=== PATIENT | male | born 1960 | race Caucasian/White ===

== ENCOUNTER 2017-09-02 20:12 | Observation (INO) | payer BC ==
[~2017-09-02] VITALS: Ht 177.8 cm; Wt 97.0 kg
[~2017-09-02 20:12] MED LIST: IBUP200T52 PO; nyquil PO
[2017-09-02] MEDS ORDERED: MULTI-VITAMIN INFUSION INJ 10 ML, THIAMINE HCL INJ 100 MG, FoLIC ACID INJ 1 MG in SODIU... IV ONE (20:30)
[2017-09-02 20:55] LABS: BASO % 0.4 %; BASO ABS # 0.03 K/uL (0-0.2); EOS % 3.7 %; EOS ABS # 0.29 K/uL (0-0.5); HEMATOCRIT 45.2 % (42-52); HEMOGLOBIN 16.3 g/dL (14.0-18.0); IG# 0.02 K/uL (0.00-0.02); LYMPH % 41.6 %; LYMPH ABS # 3.23 K/uL (1.2-3.4); MEAN CELL VOLUME 91.5 fL (80-100); MEAN CORPUSCULAR HGB CONC 36.1 g/dl (32-36); MEAN PLATELET VOLUME 10.1 fL (7.4-10.4); MONO % 10.1 %; MONO ABS # 0.78 K/uL (0.11-0.59); NEUT % 43.9 %; NEUT ABS # 3.41 K/uL (1.4-6.5); PLATELET COUNT 200 K/uL (130-400); RED CELL DISTRIBUTION WIDTH CV 12.9 % (11.5-14.5); RED CELL DISTRIBUTION WIDTH SD 43.2 fL (36.4-46.3); WHITE BLOOD COUNT 7.76 K/uL (4.8-10.8)
--- NOTE | 2017-09-02 21:06 | DIAGNOSTIC IMAGING REPORT ---
CHEST ONE VIEW PORTABLE CLINICAL HISTORY: Stroke COMPARISON STUDY: 05/05/2013 FINDINGS: The cardiac and mediastinal contours are normal. There is no evidence of focal pulmonary consolidation. There is no evidence of failure. No pleural effusions are visualized.[ IMPRESSION: No active disease in the chest. Electronically signed by: Mitesh Cabrera M.D. 09/02/2017 9:04 PM Dictated Date/Time: 09/02/2017 9:04 PM
[2017-09-02 21:13] LABS: BLOOD UREA NITROGEN 9 mg/dl (7-18); CALCIUM 8.7 mg/dl (8.5-10.1); CARBON DIOXIDE 24 mmol/L (21-32); CREATININE 1.01 mg/dl (0.60-1.40); GLUCOSE 96 mg/dl (70-99); POTASSIUM 3.6 mmol/L (3.5-5.1); SODIUM 133 mmol/L (136-145)
[2017-09-02 21:17] LABS: CKMB < 0.5 ng/ml (0.5-3.6)
--- NOTE | 2017-09-02 21:43 | DIAGNOSTIC IMAGING REPORT ---
CT HEAD WITHOUT CONTRAST (CT) CLINICAL HISTORY: Stroke RIGHT LEG AND ARM WEAKNESS COMPARISON STUDY: 05/02/2013 TECHNIQUE: Axial CT of the brain is performed from the vertex to the skull base. IV contrast was not administered for this examination. A dose lowering technique was utilized adhering to the principles of ALARA. CT DOSE: 614.27 mGy.cm FINDINGS: No intra or extra-axial mass lesions are visualized. There is no CT evidence of acute cortical infarction. There is no evidence of midline shift. There is no acute hemorrhage. No calvarial fractures are visualized. There are patchy white matter hypodensities likely on a small vessel basis. There is no evidence of pathologic ventricular dilatation. There is a stable hypodensity within the left centrum semiovale and left periventricular deep white matter. There is no evidence of acute sinusitis There is stable basilar ectasia. IMPRESSION: No acute intracranial findings Electronically signed by: Mitesh Cabrera M.D. 09/02/2017 9:41 PM Dictated Date/Time: 09/02/2017 9:39 PM
[2017-09-02] MEDS ORDERED: POLYETHYLENE (MIRALAX) 17 GM PACK PO PRN (22:45)
[2017-09-02] MEDS ORDERED: ACETAMINOPHEN 325 MG TAB PO PRN (22:45)
[2017-09-02] MEDS ORDERED: ONDANSETRON INJ 2 MG/ML 2 ML VIAL IV PRN (22:45)
[2017-09-02] MEDS ORDERED: PHARMACIST DISCHARGE MED REC CONSULT PRN (22:45)
[2017-09-02 23:09] LABS: AST/SGOT 66 U/L (15-37); TOTAL PROTEIN 8.1 gm/dl (6.4-8.2)
[2017-09-02 23:14] LABS: ALKALINE PHOSPHATASE 79 U/L (45-117); ALT/SGPT 120 U/L (12-78)
--- NOTE | 2017-09-02 23:26 | DIAGNOSTIC IMAGING REPORT ---
ULTRASOUND OF THE CAROTID ARTERIES CLINICAL HISTORY: Strokelike symptoms. COMPARISON STUDY: No priors. TECHNIQUE: Real-time, grayscale, and color Doppler sonography of the carotid arteries is performed. Images are reviewed in the transverse and longitudinal planes. FINDINGS: Blood pressure in the right arm measures 163/90 and blood pressure in the left arm measures 181/91. The carotid arteries are patent bilaterally and demonstrate antegrade flow. There is no significant atherosclerotic plaque identified. Normal doppler arterial waveforms are seen throughout. Velocity measurements are listed below. Common carotid peak systolic velocity (cm/sec): RIGHT: 117 LEFT: 88 ICA proximal peak systolic velocity (cm/sec): RIGHT: 74 LEFT: 68 ICA mid peak systolic velocity (cm/sec): RIGHT: 74 LEFT: 45 ICA distal peak systolic velocity (cm/sec): RIGHT: 67 LEFT: 64 ICA/CC peak systolic ratio: RIGHT: 0.6 LEFT: 0.8 Antegrade flow was shown in the vertebral arteries. The external carotid arteries are patent. IMPRESSION: 1. There is no sonographic evidence of hemodynamically significant stenosis in the right or left carotid arterial system. 2. Antegrade flow is shown in the vertebral arteries. Electronically signed by: Matthew Mc M.D. 09/02/2017 11:25 PM Dictated Date/Time: 09/02/2017 11:24 PM
[2017-09-02] MEDS ORDERED: IV FLUIDS COMPLETED PRN (23:30)
[2017-09-03] VITALS (9 sets, daily range): BP systolic 165–178; BP diastolic 87–97; PULSE 66–97; TEMP 36.6–36.7; O2SAT 95–96; Ht 177.8 cm; Wt 97.0 kg
--- NOTE | 2017-09-03 00:27 | History and Physical ---
History & Physical Date & Time of Service: Sep 03, 2017 at 00:15 Chief Complaint: Right Sided Weakness Primary Care Physician: No Doctor, Assigned History of Present Illness Source: patient Patient is a 56 yo male who presents to the hospital for complaints of feeling weakness and difficulty controlled his RUE and RLE. He feels it is affecting his gait and feels as though his RLE is dragging behind and difficult to move. He reports the symptoms first began 2 days ago and were not getting worse until earlier today when he noticed his right side extremities felt weaker and his friends noted that his gait appeared off. The patient also admits to drinking 10 -12 beers earlier today and states that he does binge drink beer on the weekends only. Patient denies any recent falls or trauma. No recent illness or sick contacts. Past Medical/Surgical History Medical Problems: (1) No Known Active Medical Problems SurgHx: Right ankle surgery Family History Father: CVA, diabetes Social History Smoking Status: Never Smoker Smokeless Tobacco Use: Yes (10 cans per week) Alcohol Use: heavy (on the weekends only) Drug Use: none Marital Status: Housing status: lives alone Occupational Status: employed Immunizations History of Influenza Vaccine: Yes Influenza Vaccine Date: May 06, 2013 History of Tetanus Vaccine?: Yes History of Pneumococcal: No History of Hepatitis B Vaccine: No Multi-Drug Resistant Organisms History of MDRO: No Allergies Coded Allergies: No Known Allergies (Unverified , 05/02/13) Home Medications No Active Prescriptions or Reported Meds Review of Systems Constitutional: No fever, No chills, No sweats, No weight loss Eyes: No worsening of vision, No eye pain, No diplopia ENT: No hearing loss, No nasal symptoms, No sore throat, No trouble swallowing Respiratory: No cough, No sputum, No wheezing, No shortness of breath Cardiovascular: No chest pain, No edema, No palpitations Abdomen: No pain, No nausea, No vomiting, No diarrhea Musculoskeletal: + joint pain, No swelling, No calf pain Genitourinary - Male: No hematuria, No dysuria, No urinary frequency, No urinary urgency Neurologic: + weakness, No numbness/tingling, No vertigo Psychiatric: No depression symptoms, No anhedonism, No anxiety, No insomnia Endocrine: No fatigue, No excessive thirst, No excessive urination Hematologic / Lymphatic: No abnormal bleeding/bruising, No clotting problems, No swollen lymph nodes Integumentary: No rash, No itch, No new/changing skin lesions Physical Exam Vital Signs Date Time Temp Pulse Resp B/P (MAP) Pulse Ox O2 Delivery O2 Flow Rate FiO2 09/02/17 22:17 103 165/90 94 Room Air 09/02/17 20:54 92 09/02/17 20:36 95 Room Air 09/02/17 20:17 36.6 101 18 173/96 96 Room Air General Appearance: WD/WN, no apparent distress Head: normocephalic, atraumatic Eyes: PERRL, EOMI, sclerae normal (conjunctivae clear) ENT: hearing grossly normal Neck: supple, no JVD, no carotid bruits, trachea midline Respiratory/Chest: chest non-tender, lungs clear, normal breath sounds, no respiratory distress, no accessory muscle use Cardiovascular: regular rate, rhythm, no edema, no gallop, no JVD, no murmur Abdomen/GI: normal bowel sounds, non tender, soft, no organomegaly Back: normal inspection, no CVA tenderness Extremities/Musculoskelatal: normal inspection, no calf tenderness, normal capillary refill, no pedal edema Neurologic/Psych: progress man II-XII nml as tested, no motor/sensory deficits, alert, normal mood/affect, oriented x 3 Skin: normal color, warm/dry, no rash Diagnostics Laboratory Results Results Past 24 Hours Test 09/02/17 20:34 09/02/17 20:43 09/03/17 00:00 Range/Units Bedside Prothrombin Time INR 1.0 0.9-1.1 Bedside Glucose 94 70-99 mg/dl White Blood Count 7.76 4.8-10.8 K/uL Red Blood Count 4.94 4.7-6.1 M/uL Hemoglobin 16.3 14.0-18.0 g/dL Hematocrit 45.2 42-52 % Mean Corpuscular Volume 91.5 80-100 fL Mean Corpuscular Hemoglobin 33.0 25-34 pg Mean Corpuscular Hemoglobin Concent 36.1 32-36 g/dl Platelet Count 200 130-400 K/uL Mean Platelet Volume 10.1 7.4-10.4 fL Neutrophils (%) (Auto) 43.9 % Lymphocytes (%) (Auto) 41.6 % Monocytes (%) (Auto) 10.1 % Eosinophils (%) (Auto) 3.7 % Basophils (%) (Auto) 0.4 % Neutrophils # (Auto) 3.41 1.4-6.5 K/uL Lymphocytes # (Auto) 3.23 1.2-3.4 K/uL Monocytes # (Auto) 0.78 0.11-0.59 K/uL Eosinophils # (Auto) 0.29 0-0.5 K/uL Basophils # (Auto) 0.03 0-0.2 K/uL RDW Standard Deviation 43.2 36.4-46.3 fL RDW Coefficient of Variation 12.9 11.5-14.5 % Immature Granulocyte % (Auto) 0.3 % Immature Granulocyte # (Auto) 0.02 0.00-0.02 K/uL Prothrombin Time 10.0 9.0-12.0 SECONDS Prothromb Time International Ratio 1.0 0.9-1.1 Activated Partial Thromboplast Time 24.0 21.0-31.0 SECONDS Partial Thromboplastin Ratio 0.9 Sodium Level 133 136-145 mmol/L Potassium Level 3.6 3.5-5.1 mmol/L Chloride Level 100 98-107 mmol/L Carbon Dioxide Level 24 21-32 mmol/L Anion Gap 9.0 3-11 mmol/L Blood Urea Nitrogen 9 7-18 mg/dl Creatinine 1.01 0.60-1.40 mg/dl Est Creatinine Clear Calc Drug Dose 96.3 ml/min Estimated GFR () 95.3 Estimated GFR (Non- 82.2 BUN/Creatinine Ratio 8.8 10-20 Random Glucose 96 70-99 mg/dl Calcium Level 8.7 8.5-10.1 mg/dl Magnesium Level 2.1 1.8-2.4 mg/dl Total Bilirubin 0.7 0.2-1 mg/dl Direct Bilirubin 0.1 0-0.2 mg/dl Aspartate Amino Transf (AST/SGOT) 66 15-37 U/L Alanine Aminotransferase (ALT/SGPT) 120 12-78 U/L Alkaline Phosphatase 79 45-117 U/L Total Creatine Kinase 60 39-308 U/L Creatine Kinase MB < 0.5 0.5-3.6 ng/ml Creatine Kinase MB Ratio 0-3.0 Troponin I < 0.015 0-0.045 ng/ml Total Protein 8.1 6.4-8.2 gm/dl Albumin 4.0 3.4-5.0 gm/dl Ethyl Alcohol mg/dL 223.9 0-3 mg/dl Normal EKG Impression Assessment and Plan RIGHT SIDED WEAKNESS: -initial head CT negative -obtain lipid panel, HbA1c -TTE -MRI brain -carotid US -Neuro consult -PT/OT consult -start ASA and statin -BP is slightly elevated but will not intervene until stroke is ruled out -patient will need to establish care with a PCP for additional health maintenance as he has not been followed by a physician for many years MODERATE ALCOHOL USE: -patient reports heavy drinking on the weekends, mainly Fri and Sat -counseled on the effect of heavy alcohol use even when not done daily as in binging form TOBACCO DEPENDANCE: -chewing tobacco use, needs counseling on cessation Level of Care Telemetry Resuscitation Status FULL RESUSCITATION VTE Prophylaxis VTE Risk Assessment Done? Y/N: Yes Risk Level: Moderate Given or contraindicated: Enoxaparin (Lovenox)SQ
--- NOTE | 2017-09-03 01:43 | EMERGENCY ROOM VISIT NOTE ---
History Report prepared by Gera: Sumeet Fernandez Under the Supervision of: Dr. Sumeet Dash M.D. First contact with patient: 20:17 Chief Complaint: STROKE SYMPTOMS Stated Complaint: RIGHT LEG,ARM NOT WORKING History of Present Illness The patient is a 56 year old male who presents to the Emergency Room with complaints of stroke-like symptoms on the right-side of his body for the past 2 days. Patient states that his right arm became weak 2 days ago. He states that his right leg got weak yesterday. Patient states that he was able to walk yesterday but he felt weaker than usual. Patient denies numbness, abdominal pain , fevers, headaches, or chest pain. Patient is present with a friend. Friend denies noticing any facial droop. Patient states that he drank "10-12 beers" today. He usually drinks on the weekends only. He started drinking 7 hours ago. He states that this a normal amount of drinking for a Monday afternoon. Patient denies any medical problems. He denies currently taking any medications. He denies having a PCP. His symptoms got worse today and so he presented to the emergency department. Source of History: patient Onset: 2 days ago Position: arm (right), leg (right) Timing: worsening Associated Symptoms: No fevers, No headache, No chest pain, No abdominal pain, No numbness Review of Systems See HPI for pertinent positives & negatives. A total of 10 systems reviewed and were otherwise negative. Past Medical & Surgical Medical Problems: (1) No Known Active Medical Problems (2) Right sided weakness Family History No pertinent family history. Social History Alcohol Use: none Drug Use: none Marital Status: Housing Status: lives with family Occupation Status: employed Current/Historical Medications No Active Prescriptions or Reported Meds Allergies Coded Allergies: No Known Allergies (Unverified , 05/02/13) Physical Exam Vital Signs Date Time Temp Pulse Resp B/P (MAP) Pulse Ox O2 Delivery O2 Flow Rate FiO2 09/02/17 22:17 103 165/90 94 Room Air 09/02/17 20:54 92 09/02/17 20:36 95 Room Air 09/02/17 20:17 36.6 101 18 173/96 96 Room Air Physical Exam Constitutional: Vital signs reviewed. Eyes: Pupils are equal round reactive to light. Conjunctiva are noninjected. ENT: Pharynx is clear without erythema or exudate. Mucous membranes are moist. Neck supple without meningeal signs. Respiratory: Clear to auscultation bilaterally. Breath sounds are equal bilaterally. Cardiovascular: Regular rate and rhythm. No rubs or gallops. GI: Soft, nondistended and nontender. Bowel sounds are present. Musculoskeletal: No peripheral edema. No lower extremity tenderness. Integumentary: No cyanosis. Neurological: The patient is awake and alert. Cranial nerves II-XII are intact. Motor is 5 out of 5, except for RLE which is 4 out of 5. Sensation is intact to light touch all extremities. Normal speech. No pronator drift. Psychiatric: Normal affect. Medical Decision & Procedures ER Provider Diagnostic Interpretation: Radiology results as stated below per my review and the radiologist's interpretation: CHEST ONE VIEW PORTABLE CLINICAL HISTORY: Stroke COMPARISON STUDY: 05/05/2013 FINDINGS: The cardiac and mediastinal contours are normal. There is no evidence of focal pulmonary consolidation. There is no evidence of failure. No pleural effusions are visualized.[ IMPRESSION: No active disease in the chest. Electronically signed by: Mitesh Cabrera M.D. 09/02/2017 9:04 PM Dictated Date/Time: 09/02/2017 9:[address] HEAD WITHOUT CONTRAST (CT) CLINICAL HISTORY: Stroke RIGHT LEG AND ARM WEAKNESS COMPARISON STUDY: 05/02/2013 TECHNIQUE: Axial CT of the brain is performed from the vertex to the skull base. IV contrast was not administered for this examination. A dose lowering technique was utilized adhering to the principles of ALARA. CT DOSE: 614.27 mGy.cm FINDINGS: No intra or extra-axial mass lesions are visualized. There is no CT evidence of acute cortical infarction. There is no evidence of midline shift. There is no acute hemorrhage. No calvarial fractures are visualized. There are patchy white matter hypodensities likely on a small vessel basis. There is no evidence of pathologic ventricular dilatation. There is a stable hypodensity within the left centrum semiovale and left periventricular deep white matter. There is no evidence of acute sinusitis There is stable basilar ectasia. IMPRESSION: No acute intracranial findings Electronically signed by: Mitesh Cabrera M.D. 09/02/2017 9:41 PM Dictated Date/Time: 09/02/2017 9:39 PM Laboratory Results 09/02/17 20:43 Red Blood Count 4.94, Mean Corpuscular Volume 91.5, Mean Corpuscular Hemoglobin 33.0, Mean Corpuscular Hemoglobin Concent 36.1, Mean Platelet Volume 10.1, Neutrophils (%) (Auto) 43.9, Lymphocytes (%) (Auto) 41.6, Monocytes (%) (Auto) 10.1, Eosinophils (%) (Auto) 3.7, Basophils (%) (Auto) 0.4, Neutrophils # (Auto ) 3.41, Lymphocytes # (Auto) 3.23, Monocytes # (Auto) 0.78, Eosinophils # (Auto ) 0.29, Basophils # (Auto) 0.03 09/02/17 20:43 Test 09/02/17 20:34 09/02/17 20:43 Bedside Prothrombin Time INR 1.0 (0.9-1.1) Bedside Glucose 94 mg/dl (70-99) White Blood Count 7.76 K/uL (4.8-10.8) Red Blood Count 4.94 M/uL (4.7-6.1) Hemoglobin 16.3 g/dL (14.0-18.0) Hematocrit 45.2 % (42-52) Mean Corpuscular Volume 91.5 fL (80-100) Mean Corpuscular Hemoglobin 33.0 pg (25-34) Mean Corpuscular Hemoglobin Concent 36.1 g/dl (32-36) Platelet Count 200 K/uL (130-400) Mean Platelet Volume 10.1 fL (7.4-10.4) Neutrophils (%) (Auto) 43.9 % Lymphocytes (%) (Auto) 41.6 % Monocytes (%) (Auto) 10.1 % Eosinophils (%) (Auto) 3.7 % Basophils (%) (Auto) 0.4 % Neutrophils # (Auto) 3.41 K/uL (1.4-6.5) Lymphocytes # (Auto) 3.23 K/uL (1.2-3.4) Monocytes # (Auto) 0.78 K/uL (0.11-0.59) Eosinophils # (Auto) 0.29 K/uL (0-0.5) Basophils # (Auto) 0.03 K/uL (0-0.2) RDW Standard Deviation 43.2 fL (36.4-46.3) RDW Coefficient of Variation 12.9 % (11.5-14.5) Immature Granulocyte % (Auto) 0.3 % Immature Granulocyte # (Auto) 0.02 K/uL (0.00-0.02) Prothrombin Time 10.0 SECONDS (9.0-12.0) Prothromb Time International Ratio 1.0 (0.9-1.1) Activated Partial Thromboplast Time 24.0 SECONDS (21.0-31.0) Partial Thromboplastin Ratio 0.9 Anion Gap 9.0 mmol/L (3-11) Est Creatinine Clear Calc Drug Dose 96.3 ml/min Estimated GFR () 95.3 Estimated GFR (Non- 82.2 BUN/Creatinine Ratio 8.8 (10-20) Calcium Level 8.7 mg/dl (8.5-10.1) Magnesium Level 2.1 mg/dl (1.8-2.4) Total Bilirubin 0.7 mg/dl (0.2-1) Direct Bilirubin 0.1 mg/dl (0-0.2) Aspartate Amino Transf (AST/SGOT) 66 U/L (15-37) Alanine Aminotransferase (ALT/SGPT) 120 U/L (12-78) Alkaline Phosphatase 79 U/L (45-117) Total Creatine Kinase 60 U/L (39-308) Creatine Kinase MB < 0.5 ng/ml (0.5-3.6) Creatine Kinase MB Ratio (0-3.0) Troponin I < 0.015 ng/ml (0-0.045) Total Protein 8.1 gm/dl (6.4-8.2) Albumin 4.0 gm/dl (3.4-5.0) Ethyl Alcohol mg/dL 223.9 mg/dl (0-3) Laboratory results as reviewed by me. Medications Administered Medications (Trade) Dose Ordered Sig/Shirlene Route Start Time Stop Time Status Last Admin Dose Admin Multivitamins 10 ml/Thiamine HCl 100 mg/Folic Acid 1 mg/Sodium Chloride 1,011.2 ml @ 500 mls/ hr Q2H2M ONCE IV 09/02/17 20:30 09/02/17 22:31 DC 09/02/17 20:30 500 MLS/HR ECG Per My Interpretation Indication: other (Stroke symptoms) Rate (beats per minute): 99 Rhythm: normal sinus Findings: Q waves (Inferior), no ectopy, other (No ST elevation) ED Course 2019: The patient was evaluated in room B9. A complete history and physical exam was performed. 2030: Multivitamins 10ml/Thiamine HCl 100mg/Folic Acid 1mg/Sodium Chloride 1011.2 ml @ 500 mls/hr IV 2200: I reassessed the patient. Patient still has slight weakness in his right leg. Patient will be admitted to Dr. Guy [facility] for further evaluation. Patient is agreeable to the treatment plan. Medical Decision This is a 56-year-old male who presents with right-sided weakness. Differential diagnosis includes CVA, TIA, intracranial mass, intracranial hemorrhage, metabolic derangement. I did perform a limited focused review of portions of the patient's old chart on the electronic medical record. The patient has had no recent pertinent visits to this hospital. I did evaluate the patient as noted above. IV access was established. The patient was placed on a continuous vehicle monitor technician. He was given a banana bag IV. I did order and personally review the patient's 12-lead EKG and chest x- ray as described above. I did order and review the patient's blood work as noted in the electronic medical record. His serum alcohol is over 200. I did order a CT of the head. I did review the images myself as well as the radiology report as described above. There is no evidence of intracranial abnormality. I did reexamine the patient. He does have persistent weakness to the right leg. He is not an IV TPA candidate as he has had symptoms for the past 2 days. I did discuss the test results with him. I did recommend hospitalization for MRI and further evaluation. I did discuss the case with the hospitalist and corrections caseworker. Medication Reconcilliation Current Medication List: was personally reviewed by me Blood Pressure Screening Patient's blood pressure: Elevated blood pressure Blood pressure disposition: Referred to PCP Consults Time Called: 2200 Consulting Physician: Dr. Tanisha Reagan Hospitalist Returned Call: [phone] Garay of [facility]. We discussed the patient and his results. The patient will be further evaluated by Dr. Garay. Impression Primary Impression: Right sided weakness Additional Impression: Alcohol intoxication Scribe Attestation The scribe's documentation has been prepared under my direct and personally reviewed by me in its entirety. I confirm that the note above accurately reflects all work, treatment, procedures, and medical decision making performed by me. Departure Information Dispostion Being Evaluated By Hospitalist Prescriptions No Active Prescriptions or Reported Meds Referrals No Doctor, Assigned (PCP) Forms HOME CARE DOCUMENTATION FORM, IMPORTANT VISIT INFORMATION Patient Instructions [facility] Problem Qualifiers Additional Impression: Alcohol intoxication Complication of substance-induced condition: uncomplicated Qualified Codes: F10.920 - Alcohol use, unspecified with intoxication, uncomplicated
[2017-09-03 04:25] LABS: BASO % 0.5 %; BASO ABS # 0.03 K/uL (0-0.2); EOS % 7.2 %; EOS ABS # 0.44 K/uL (0-0.5); HEMATOCRIT 44.2 % (42-52); HEMOGLOBIN 15.4 g/dL (14.0-18.0); IG# 0.01 K/uL (0.00-0.02); LYMPH % 45.6 %; LYMPH ABS # 2.78 K/uL (1.2-3.4); MEAN CELL VOLUME 92.7 fL (80-100); MEAN CORPUSCULAR HEMOGLOBIN 32.3 pg (25-34); MEAN CORPUSCULAR HGB CONC 34.8 g/dl (32-36); MEAN PLATELET VOLUME 10.7 fL (7.4-10.4); MONO % 12.2 %; MONO ABS # 0.74 K/uL (0.11-0.59); NEUT % 34.3 %; NEUT ABS # 2.09 K/uL (1.4-6.5); PLATELET COUNT 190 K/uL (130-400); RED CELL DISTRIBUTION WIDTH CV 12.9 % (11.5-14.5); RED CELL DISTRIBUTION WIDTH SD 43.9 fL (36.4-46.3); WHITE BLOOD COUNT 6.09 K/uL (4.8-10.8)
[2017-09-03 05:01] LABS: BLOOD UREA NITROGEN 9 mg/dl (7-18); CALCIUM 8.4 mg/dl (8.5-10.1); CARBON DIOXIDE 22 mmol/L (21-32); CHOLESTEROL 221 mg/dl (0-200); CREATININE 0.95 mg/dl (0.60-1.40); GLUCOSE 94 mg/dl (70-99); LDL CHOLESTEROL CALCULATED 143 mg/dl; SODIUM 138 mmol/L (136-145)
[2017-09-03] MEDS ORDERED: IV FLUIDS COMPLETED PRN (06:00)
[2017-09-03 06:36] LABS: POTASSIUM 4.7 mmol/L (3.5-5.1)
[2017-09-03] MEDS ORDERED: PERFLUTREN LIPID MICROSPHERE (DEFINITY) IV ONE (08:12)
[2017-09-03] MEDS ORDERED: ENOXAPARIN 40 MG/0.4 ML SYR SC SCH (09:00)
[2017-09-03] MEDS ORDERED: ASPIRIN 81 MG ECTAB PO SCH (09:00)
[2017-09-03] MEDS ORDERED: THIAMINE HCL 100 MG TAB PO SCH (09:00)
[2017-09-03] MEDS ORDERED: ATORVASTATIN 10 MG TAB PO SCH (09:00)
[2017-09-03] MEDS ORDERED: OPTIRAY 320 IV PRN (11:15)
--- NOTE | 2017-09-03 11:35 | ECHOCARDIOGRAM REPORT ---
*NOTICE TO RECEIVING REPUBLICAN AGENCY This information is strictly Confidential and protected under [place] law. [place] law prohibits you from making any further disclosure of this information unless further disclosure is expressly permitted by the written consent of the person to whom it pertains or is authorized by law. A general authorization for the release of medical or other information is not sufficient for this purpose. Hospital accepts no responsibility if the information is made available to any other person, INCLUDING THE PATIENT. Interpretation Summary * Name: OSCAR WEBB Study Date: 09/03/2017 07:39 AM BP: 167/97 mmHg * Patient Location: [facility]\S\N284\S\2 HR: 78 * : 1960 (M/d/yyyy) Gender: Male Height: 70 in * Age: 56 yrs Ethnicity: [place] Weight: 223 lb * Ordering Physician: Yeimi Garay * Referring Physician: Self, Referred * Performed By: Vladimir Sorenson RDCS * * Reason For Study: Cerebral ischemia/embolus * BSA: 2.2 m2 * -- Conclusions -- * There is mild concentric left ventricular hypertrophy. * The left ventricular wall motion is normal. * The LV Ejection Fraction = 55-60%. * Aortic valve sclerosis mild, without significant aortic valvular stenosis. * Grade I diastolic dysfunction, (abnormal relaxation pattern). * There is no evidence of atrial septal defect, but resolution does not allow assessment for a patent foramen ovale despite administration of agitated saline contrast. Procedure Details * A complete two-dimensional transthoracic echocardiogram was performed (2D, M-mode, Doppler and color flow Doppler). * The study was technically difficult, but visualization was adequate with the administration of Definity ultrasound contrast. * A contrast injection of Definity was performed to improve assessment of LV function. * Contrast was injected into an intravenous site in the left arm. * One vial of Definity ultrasound contrast was diluted in normal saline to a total volume of 10 ml. A total of '4' ml of solution was administered during imaging. * Lot # [id number] of Definity utilized for procedure. * Expiration date . * The attending nurse who injected the contrast agent was RADHA Cohn. * A saline contrast injection was performed to assess for cardiac shunting. * The injection was performed through an intravenous line in the left arm. * The attending nurse who injected the saline contrast was RADHA Cohn. * A total of 10 cc of agitated saline was given. Left Ventricle * The left ventricle is normal in size. * There is mild concentric left ventricular hypertrophy. * Left ventricular systolic function is normal. * Ejection Fraction = 55-60%. * The left ventricular wall motion is normal. Right Ventricle * The right ventricle is normal size. * The right ventricular systolic function is normal as assessed by tricuspid annular plane systolic excursion (TAPSE) (normal >1.5 cm). Atria * The left atrial size is normal. * Right atrial size is normal. * There is no evidence of atrial septal defect, but resolution does not allow assessment for a patent foramen ovale. Mitral Valve * The mitral valve is normal. * There is no mitral valve stenosis. * Significant mitral regurgitation is absent. Tricuspid Valve * The tricuspid valve is normal. * There is no tricuspid stenosis. * Significant tricuspid regurgitation is absent. Aortic Valve * The aortic valve is trileaflet. * Aortic valve sclerosis mild, without significant aortic valvular stenosis. * Aortic stenosis is absent. * There is no significant aortic regurgitation. Pulmonic Valve * The pulmonary valve is not well seen, but the Doppler examination is normal without significant regurgitation or stenosis. Great Vessels * The aortic root and proximal ascending aorta are normal sized. Pericardium/Pleural * There is no pericardial effusion. * There is an echodensity in the anterior pericardial space consistent with pericardial fat. Great Vessels * Normal inferior vena cava diameter and respiratory variation suggests normal central venous pressure. Left Ventricular Diastolic Function * Grade I diastolic dysfunction, (abnormal relaxation pattern). MMode 2D Measurements and Calculations IVSd 1.3 cm IVSs 1.9 cm LVIDd 3.9 cm LVIDs 2.3 cm LVPWd 1.2 cm LVPWs 1.7 cm IVS/LVPW 1.1 FS 41.5 % EDV(Teich) 67.0 ml ESV(Teich) 18.1 ml EF(Teich) 73.0 % EDV(cubed) 60.6 ml ESV(cubed) 12.1 ml EF(cubed) 80.0 % % IVS thick 48.2 % % LVPW thick 41.9 % LV mass(C)d 175.6 grams LV mass(C)dI 80.3 grams/m\S\2 LV mass(C)s 169.3 grams LV mass(C)sI 77.4 grams/m\S\2 SV(Teich) 48.9 ml SI(Teich) 22.4 ml/m\S\2 SV(cubed) 48.5 ml SI(cubed) 22.2 ml/m\S\2 EPSS 0.63 cm Ao root diam 3.6 cm Ao root area 10.4 cm\S\2 ACS 2.0 cm LA dimension 3.5 cm asc Aorta Diam 3.4 cm LA/Ao 0.96 LVOT diam 2.0 cm LVOT area 3.2 cm\S\2 LVAd ap4 27.7 cm\S\2 LVLd ap4 8.7 cm EDV(MOD-sp4) 72.0 ml EDV(sp4-el) 75.3 ml LVAs ap4 15.5 cm\S\2 LVLs ap4 7.4 cm ESV(MOD-sp4) 27.5 ml ESV(sp4-el) 27.6 ml EF(MOD-sp4) 61.8 % EF(sp4-el) 63.4 % LVAd ap2 24.9 cm\S\2 LVLd ap2 8.2 cm EDV(MOD-sp2) 61.9 ml EDV(sp2-el) 63.9 ml LVAs ap2 14.8 cm\S\2 LVLs ap2 7.5 cm ESV(MOD-sp2) 24.0 ml ESV(sp2-el) 24.7 ml EF(MOD-sp2) 61.2 % EF(sp2-el) 61.3 % LVLd %diff -5.41 % EDV(MOD-bp) 67.2 ml LVLs %diff 0.64 % ESV(MOD-bp) 25.7 ml EF(MOD-bp) 61.7 % SV(MOD-sp4) 44.5 ml SI(MOD-sp4) 20.4 ml/m\S\2 SV(MOD-sp2) 37.9 ml SI(MOD-sp2) 17.3 ml/m\S\2 SV(MOD-bp) 41.5 ml SI(MOD-bp) 19.0 ml/m\S\2 SV(sp4-el) 47.8 ml SI(sp4-el) 21.9 ml/m\S\2 SV(sp2-el) 39.1 ml SI(sp2-el) 17.9 ml/m\S\2 Doppler Measurements and Calculations MV E max gamal 64.7 cm/sec MV A max gamal 67.6 cm/sec MV E/A 0.96 MV dec time 0.22 sec Ao V2 max 140.6 cm/sec Ao max PG 7.9 mmHg Ao max PG (full) 3.7 mmHg BECKY(V,A) 2.4 cm\S\2 BECKY(V,D) 2.4 cm\S\2 LV V1 max PG 4.2 mmHg LV V1 max 102.8 cm/sec PA V2 max 121.7 cm/sec PA max PG 5.9 mmHg PA acc slope 596.1 cm/sec\S\2 PA acc time 0.16 sec PA pr(Accel) 8.2 mmHg
--- NOTE | 2017-09-03 11:43 | DIAGNOSTIC IMAGING REPORT ---
CT ANGIOGRAPHY HEAD COMBO CT DOSE: 822.72 mGy.cm CLINICAL HISTORY: Stroke like symptoms TECHNIQUE: Unenhanced images were obtained the brain. The patient was then scanned in a dynamic helical fashion during intravenous administration of 105 cc of Optiray 320. MIP imaging was performed. A dose lowering technique was utilized adhering to the principles of ALARA. COMPARISON STUDY: Noncontrast head CT dated 09/02/2017 FINDINGS: No intra or extra-axial mass lesions are visualized. There is no CT evidence of acute cortical infarction. There are stable hypodensities within the left centrum semiovale and left periventricular deep white matter. Postcontrast images reveal mild basilar ectasia. There are no major intracranial branch occlusions. There are no no lesion suspicious for aneurysm. There is no evidence of significant intracranial stenosis. There is no evidence of dural venous sinus thrombosis. IMPRESSION: 1. No evidence of aneurysm 2. No evidence of major intracranial branch occlusion or stenosis Electronically signed by: Mitesh Cabrera M.D. 09/03/2017 11:41 AM Dictated Date/Time: 09/03/2017 11:38 AM
[2017-09-03] MEDS ORDERED: AMLODIPINE BESYLATE 5 MG TAB PO ONE (15:37)
[2017-09-03] MEDS ORDERED: CLONIDINE HCL 0.1 MG TAB PO PRN (15:45)
--- NOTE | 2017-09-03 16:45 | Progress Note ---
Medicine Progress Note Date & Time of Visit: Sep 03, 2017 at 15:41. Subjective 56 yo M with transient R sided weakness presented to the ER intoxicated from alcohol. Overnight his symptoms resolved and he is asymptomatic at this time, ambulating without difficulty. Workup has been negative so far including carotid u/s, CT head without contrast, and TTE which could not definitively rule out an ASD. Telemetry has been reviewed and was normal. He could not tolerate the MRI and Neuro was consulted to evaluate him further. Of note, he denies any other stroke like symptoms in the past few days including no difficulty swallowing, no headaches, visual changes, speech difficulties, numbness or tingling. He is asking to go home. Objective Last 8 Hrs Date Time Temp Pulse Resp B/P (MAP) Pulse Ox O2 Delivery O2 Flow Rate FiO2 09/03/17 12:20 36.7 66 18 178/87 (117) 95 Room Air 09/03/17 12:00 96 Room Air 09/03/17 08:00 96 Room Air 09/03/17 07:44 36.6 78 16 170/87 (114) 96 Physical Exam: GEN: WNWD, in no acute distress, alert and appropriate HEENT: NC/AT, PERRL, normal sclerae, EOMI CARDIO: reg rate, S1/2 heard without m/g/r LUNGS: CTA bilaterally, no crackles, rales or wheezes, good diaphragmatic excursion ABD: soft, non-tender, non-distended, no rebound or guarding, +BS EXTREMITY: RP and DP palpable 2+ bilat, no LE swelling or edema, extremities are warm and well-perfused NEURO: CN 2-12 intact, sensation intact throughout, no asterixis or tremulous seen. MUSC: 5/5 strength throughout, no gross focal deficits SKIN: warm and dry Laboratory Results: 09/03/17 04:10 Red Blood Count 4.77, Mean Corpuscular Volume 92.7, Mean Corpuscular Hemoglobin 32.3, Mean Corpuscular Hemoglobin Concent 34.8, Mean Platelet Volume 10.7, Neutrophils (%) (Auto) 34.3, Lymphocytes (%) (Auto) 45.6, Monocytes (%) (Auto) 12.2, Eosinophils (%) (Auto) 7.2, Basophils (%) (Auto) 0.5, Neutrophils # (Auto ) 2.09, Lymphocytes # (Auto) 2.78, Monocytes # (Auto) 0.74, Eosinophils # (Auto ) 0.44, Basophils # (Auto) 0.03 09/03/17 04:10 09/03/17 05:52 Test 09/02/17 20:34 09/02/17 20:43 09/03/17 00:00 09/03/17 04:10 Bedside Prothrombin Time INR 1.0 (0.9-1.1) Bedside Glucose 94 mg/dl (70-99) Prothrombin Time 10.0 SECONDS (9.0-12.0) Prothromb Time International Ratio 1.0 (0.9-1.1) Activated Partial Thromboplast Time 24.0 SECONDS (21.0-31.0) Partial Thromboplastin Ratio 0.9 Magnesium Level 2.1 mg/dl (1.8-2.4) Total Bilirubin 0.7 mg/dl (0.2-1) Direct Bilirubin 0.1 mg/dl (0-0.2) Aspartate Amino Transf (AST/SGOT) 66 U/L (15-37) Alanine Aminotransferase (ALT/SGPT) 120 U/L (12-78) Alkaline Phosphatase 79 U/L (45-117) Total Creatine Kinase 60 U/L (39-308) Creatine Kinase MB < 0.5 ng/ml (0.5-3.6) Creatine Kinase MB Ratio (0-3.0) Total Protein 8.1 gm/dl (6.4-8.2) Albumin 4.0 gm/dl (3.4-5.0) Ethyl Alcohol mg/dL 223.9 mg/dl (0-3) Urine Opiates Screen NEG (NEG) Urine Methadone, Qualitative NEG (NEG) Urine Barbiturates NEG (NEG) Urine Phencyclidine (PCP) Level NEG (NEG) Ur Amphetamine/Methamphetamine NEG (NEG) MDMA (Ecstasy) Screen NEG (NEG) Urine Benzodiazepines Screen NEG (NEG) Urine Cocaine Metabolite NEG (NEG) Urine Marijuana (THC) NEG (NEG) White Blood Count 6.09 K/uL (4.8-10.8) Red Blood Count 4.77 M/uL (4.7-6.1) Hemoglobin 15.4 g/dL (14.0-18.0) Hematocrit 44.2 % (42-52) Mean Corpuscular Volume 92.7 fL (80-100) Mean Corpuscular Hemoglobin 32.3 pg (25-34) Mean Corpuscular Hemoglobin Concent 34.8 g/dl (32-36) Platelet Count 190 K/uL (130-400) Mean Platelet Volume 10.7 fL (7.4-10.4) Neutrophils (%) (Auto) 34.3 % Lymphocytes (%) (Auto) 45.6 % Monocytes (%) (Auto) 12.2 % Eosinophils (%) (Auto) 7.2 % Basophils (%) (Auto) 0.5 % Neutrophils # (Auto) 2.09 K/uL (1.4-6.5) Lymphocytes # (Auto) 2.78 K/uL (1.2-3.4) Monocytes # (Auto) 0.74 K/uL (0.11-0.59) Eosinophils # (Auto) 0.44 K/uL (0-0.5) Basophils # (Auto) 0.03 K/uL (0-0.2) RDW Standard Deviation 43.9 fL (36.4-46.3) RDW Coefficient of Variation 12.9 % (11.5-14.5) Immature Granulocyte % (Auto) 0.2 % Immature Granulocyte # (Auto) 0.01 K/uL (0.00-0.02) Anion Gap 8.0 mmol/L (3-11) Est Creatinine Clear Calc Drug Dose 102.4 ml/min Estimated GFR () 102.6 Estimated GFR (Non- 88.5 BUN/Creatinine Ratio 9.3 (10-20) Calcium Level 8.4 mg/dl (8.5-10.1) Triglycerides Level 137 mg/dl (0-150) Cholesterol Level 221 mg/dl (0-200) HDL Cholesterol 51 mg/dl LDL Cholesterol, Calculated 143 mg/dl VLDL Cholesterol, Calculated 27 mg/dl Cholesterol/HDL Ratio 4.3 Test 09/03/17 05:52 09/03/17 12:39 Chemistry Specimen Hemolysis Troponin I < 0.015 ng/ml (0-0.045) Last 24 Hours Test 09/02/17 20:34 09/02/17 20:43 09/03/17 00:00 09/03/17 04:10 Bedside Prothrombin Time INR 1.0 Bedside Glucose 94 mg/dl White Blood Count 7.76 K/uL 6.09 K/uL Red Blood Count 4.94 M/uL 4.77 M/uL Hemoglobin 16.3 g/dL 15.4 g/dL Hematocrit 45.2 % 44.2 % Mean Corpuscular Volume 91.5 fL 92.7 fL Mean Corpuscular Hemoglobin 33.0 pg 32.3 pg Mean Corpuscular Hemoglobin Concent 36.1 g/dl 34.8 g/dl Platelet Count 200 K/uL 190 K/uL Mean Platelet Volume 10.1 fL 10.7 fL Neutrophils (%) (Auto) 43.9 % 34.3 % Lymphocytes (%) (Auto) 41.6 % 45.6 % Monocytes (%) (Auto) 10.1 % 12.2 % Eosinophils (%) (Auto) 3.7 % 7.2 % Basophils (%) (Auto) 0.4 % 0.5 % Neutrophils # (Auto) 3.41 K/uL 2.09 K/uL Lymphocytes # (Auto) 3.23 K/uL 2.78 K/uL Monocytes # (Auto) 0.78 K/uL 0.74 K/uL Eosinophils # (Auto) 0.29 K/uL 0.44 K/uL Basophils # (Auto) 0.03 K/uL 0.03 K/uL RDW Standard Deviation 43.2 fL 43.9 fL RDW Coefficient of Variation 12.9 % 12.9 % Immature Granulocyte % (Auto) 0.3 % 0.2 % Immature Granulocyte # (Auto) 0.02 K/uL 0.01 K/uL Prothrombin Time 10.0 SECONDS Prothromb Time International Ratio 1.0 Activated Partial Thromboplast Time 24.0 SECONDS Partial Thromboplastin Ratio 0.9 Sodium Level 133 mmol/L 138 mmol/L Potassium Level 3.6 mmol/L mmol/L Chloride Level 100 mmol/L 108 mmol/L Carbon Dioxide Level 24 mmol/L 22 mmol/L Anion Gap 9.0 mmol/L 8.0 mmol/L Blood Urea Nitrogen 9 mg/dl 9 mg/dl Creatinine 1.01 mg/dl 0.95 mg/dl Est Creatinine Clear Calc Drug Dose 96.3 ml/min 102.4 ml/min Estimated GFR () 95.3 102.6 Estimated GFR (Non- 82.2 88.5 BUN/Creatinine Ratio 8.8 9.3 Random Glucose 96 mg/dl 94 mg/dl Calcium Level 8.7 mg/dl 8.4 mg/dl Magnesium Level 2.1 mg/dl Total Bilirubin 0.7 mg/dl Direct Bilirubin 0.1 mg/dl Aspartate Amino Transf (AST/SGOT) 66 U/L Alanine Aminotransferase (ALT/SGPT) 120 U/L Alkaline Phosphatase 79 U/L Total Creatine Kinase 60 U/L Creatine Kinase MB < 0.5 ng/ml Creatine Kinase MB Ratio Troponin I < 0.015 ng/ml < 0.015 ng/ml Total Protein 8.1 gm/dl Albumin 4.0 gm/dl Ethyl Alcohol mg/dL 223.9 mg/dl Urine Opiates Screen NEG Urine Methadone, Qualitative NEG Urine Barbiturates NEG Urine Phencyclidine (PCP) Level NEG Ur Amphetamine/Methamphetamine NEG MDMA (Ecstasy) Screen NEG Urine Benzodiazepines Screen NEG Urine Cocaine Metabolite NEG Urine Marijuana (THC) NEG Triglycerides Level 137 mg/dl Cholesterol Level 221 mg/dl HDL Cholesterol 51 mg/dl LDL Cholesterol, Calculated 143 mg/dl VLDL Cholesterol, Calculated 27 mg/dl Cholesterol/HDL Ratio 4.3 Test 09/03/17 05:52 09/03/17 12:39 Potassium Level 4.7 mmol/L Chemistry Specimen Hemolysis Troponin I < 0.015 ng/ml Assessment & Plan 56 yo M with transient R sided weakness presented to the ER intoxicated from alcohol. Overnight his symptoms resolved and he is asymptomatic at this time, ambulating without difficulty. Workup has been negative so far including carotid u/s, CT head without contrast, and TTE which could not definitively rule out an ASD. Telemetry has been reviewed and was normal. He could not tolerate the MRI and Neuro was consulted to evaluate him further. Of note, he denies any other stroke like symptoms in the past few days including no difficulty swallowing, no headaches, visual changes, speech difficulties, numbness or tingling. He is asking to go home. 1. Right sided weakness-transient and then resolved. Uncertain if this is something centrally mediated such as a TIA or stroke or possibly something peripheral. Workup negative so far and pending Neuro disposition. Issue has resolved. He is safe to return home from a PT standpoint. Cont ASA and statin. 2. EtOH use-reports heavy binge drinking on the weekends. Counseled that this was hazardous to his health. Cont thiamine and folate supplementation. 3. Tobacco dependence 4. Elevated BP-pt not on medications, however, he hasn't seen a physician in many years. Doesn't appear to be in withdrawal. Starting Norvasc 10mg daily and PRN clonidine. DVT proph-Lovenox. Full Code Dispo-per Neuro recs. Pt will need to be set up with PCP in [place] for follow-up as has not established care. DO Carlos Gray Hospitalist Current Inpatient Medications: Current Inpatient Medications Medications (Trade) Dose Ordered Sig/Shirlene Route Start Time Stop Time Status Last Admin Dose Admin Atorvastatin Calcium (Lipitor Tab) 10 mg QAM PO 09/03/17 09:00 10/03/17 08:59 09/03/17 09:11 10 MG Aspirin (Ecotrin Tab) 81 mg QAM PO 09/03/17 09:00 10/03/17 08:59 09/03/17 09:11 81 MG Miscellaneous Information (Pharmacist Discharge Med Rec Consult) 1 ea UD PRN N/A 09/02/17 22:45 10/02/17 22:44 Enoxaparin Sodium (Lovenox Inj) 40 mg Q24H SC 09/03/17 09:00 10/03/17 08:59 09/03/17 09:12 40 MG Acetaminophen (Tylenol Tab) 650 mg Q4H PRN PO 09/02/17 22:45 10/02/17 22:44 Ondansetron HCl (Zofran Inj) 4 mg Q6H PRN IV 09/02/17 22:45 10/02/17 22:44 Polyethylene (Miralax Powder Packet) 17 gm DAILY PRN PO 09/02/17 22:45 10/02/17 22:44 Miscellaneous (Iv Fluids Completed) 1 ea PRN PRN N/A 09/02/17 23:30 09/02/18 23:29 Thiamine HCl (Vitamin B-1 Tab) 100 mg QAM PO 09/03/17 09:00 10/03/17 08:59 09/03/17 09:11 100 MG Folic Acid (Folvite Tab) 1 mg QAM PO 09/03/17 09:00 10/03/17 08:59 09/03/17 09:11 1 MG Miscellaneous (Iv Fluids Completed) 1 ea PRN PRN N/A 09/03/17 06:00 09/03/18 05:59 Ioversol (Optiray 320) 100 ml UD PRN IV 09/03/17 11:15 09/07/17 11:14
[2017-09-03] MEDS ORDERED: AMLO10TA2 PO (17:06)
[2017-09-03] MEDS ORDERED: ASPEC81 PO (17:06)
[2017-09-03] MEDS ORDERED: LPT40 PO (17:06)
--- NOTE | 2017-09-03 17:13 | Discharge Summary ---
Discharge Summary Date of Service Sep 03, 2017. Discharge Summary Admission Date: Sep 02, 2017 at 22:49 Discharge Date: Sep 03, 2017 Discharge Disposition: Home Principal Diagnosis: Stroke HTN ETOH use Tobacco use Procedures: None. Vaccinations: None. Consultations: Neuro-Mateer Pending Studies/Follow-Up: see instructions below. Medication Reconciliation New Medications: Amlodipine Besylate (Norvasc) 10 Mg Tab 1 TAB PO DAILY for 30 Days, #30 TAB Aspirin (Aspirin EC Low Dose) 81 Mg Ectab 81 MG PO QAM for 90 Days, #90 TAB 3 Refills Atorvastatin (Lipitor) 40 Mg Tab 40 MG PO HS for 30 Days, #30 TAB 3 Refills Admission Information HPI (per Admitting provider): Patient is a 56 yo male who presents to the hospital for complaints of feeling weakness and difficulty controlled his RUE and RLE. He feels it is affecting his gait and feels as though his RLE is dragging behind and difficult to move. He reports the symptoms first began 2 days ago and were not getting worse until earlier today when he noticed his right side extremities felt weaker and his friends noted that his gait appeared off. The patient also admits to drinking 10 -12 beers earlier today and states that he does binge drink beer on the weekends only. Patient denies any recent falls or trauma. No recent illness or sick contacts. Physical Exam (per Admitting): General Appearance: WD/WN, no apparent distress Head: normocephalic, atraumatic Eyes: PERRL, EOMI, sclerae normal (conjunctivae clear) ENT: hearing grossly normal Neck: supple, no JVD, no carotid bruits, trachea midline Respiratory/Chest: chest non-tender, lungs clear, normal breath sounds, no respiratory distress, no accessory muscle use Cardiovascular: regular rate, rhythm, no edema, no gallop, no JVD, no murmur Abdomen/GI: normal bowel sounds, non tender, soft, no organomegaly Back: normal inspection, no CVA tenderness Extremities/Musculoskelatal: normal inspection, no calf tenderness, normal capillary refill, no pedal edema Neurologic/Psych: customer agent II-XII nml as tested, no motor/sensory deficits, alert , normal mood/affect, oriented x 3 Skin: normal color, warm/dry, no rash Hospital Course 56 yo M presented under the influence of alcohol with reports of weakness and difficulty controlling his R side with affected gait for the past couple of days. He was admitted for a stroke workup and placed on telemetry. He underwent a CT head and carotid ultrasound which were unremarkable. He underwent an echo with bubble study with was normal and inconclusive for a possible PFO. He attempted an MRI but became too claustrophobic and could not complete the study. 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 No significant intracranial disease was seen on CTA with contrast the following day and echo reveals no cardiogenic source of emboli, although [id number] shunt through a PFO cannot be totally excluded. He is a binge drinker and was counseled against this and use of tobacco for betterment of his health. He remained hemodynamically stable while admitted by was notably hypertensive without any signs or symptoms of alcohol withdrawal. BP was consistently high so he was placed on Norvasc 10mg PO daily at discharge with recommendation for follow-up in one week. He was also given aspirin and Lipitor daily for stroke prophylaxis. All medications were reviewed with him. Telemetry was reviewed and was unremarkable for anything other than sinus rhythm. On dya of discharge he had no gross focal deficits with resolution of initial symptoms, he was afebrile and tolerating PO and mentating at baseline. He was sent home in stable condition with recommended follow-up in Neurology in 3-4 weeks. Total time spent on discharge = 60 minutes This includes examination of the patient, discharge planning, medication reconciliation, and communication with other providers. [place] [address] Discharge Stroke Condition Patient Name: Nick Alegria Unit Number: [id number] Date of : 1960 Patient Status: Admitted Inpatient (obs) Attending Doctor: Zeynep Zepeda DO DI: Stroke v4 Discharge Instructions Date of Service Sep 03, 2017. Admission Reason for Admission: Right Sided Weakness Discharge Discharge Diagnosis / Problem: Stroke Discharge Goals Goal(s): Prevent Disease Progression Activity Recommendations Activity Limitations: per Instructions/Follow-up section . Instructions / Follow-Up Instructions / Follow-Up Risk Factors for Stroke: You can reduce your chances of stroke by working with your medical provider to adopt a healthy lifestyle. Some specific ways to lower your chance of stroke are: * If you are a smoker, now is the time to stop smoking cigarettes * If you are diabetic, improve the control of your blood sugars * Avoid excessive amounts of alcohol * Control high blood pressure * Lose weight if you are overweight * Be sure to lead an active lifestyle * Eat a healthy diet low in salt, cholesterol and fat You should know about other risk factors for stroke that you are unable to control. These include: * Age 55 years or older * Male gender * Certain racial groups: , or / * Family History of Stroke, Mini stroke or Heart Attack * Sickle Cell Disease Follow Up: It is important for you to keep your follow up appointments with your medical provider. ADDITIONAL PROVIDER INSTRUCTIONS: Please take all medications as instructed as these will help lessen the likelihood for you to have a future stroke. You will need to have your blood pressure reassessed in one week. Someone from our staff will contact you regarding a follow-up appointment with a primary care physician in your area after the weekend. You have been given one month supply of blood pressure medications, and this will need to be adjusted or refilled by this provider on follow-up. You are highly encouraged to stop drinking alcohol excessively and to stop tobacco use as this will improve your health overall and help to prevent future strokes. You will need to follow-up with Dr. Ezekiel King in the [facility] Neurology office for a follow-up appointment in the next 3-4 weeks. It was a pleasure taking care of you! Call if you have any questions or problems. You can reach a [facility] hospitalist on duty at [facility] 24 hours a day by calling [phone]. Take care of yourself. Zeynep Zepeda, [facility] Hospitalist Current Hospital Diet Patient's current hospital diet: AHA Diet (Heart Healthy) Discharge Diet Recommended Diet: AHA Diet (Heart Healthy) Pending Studies Studies pending at discharge: no Laboratory Results Hemoglobin A1c Test 09/03/17 04:10 Range/Units Lipid Panel Test 09/03/17 04:10 Range/Units Triglycerides Level 137 0-150 mg/dl Cholesterol Level 221 H 0-200 mg/dl HDL Cholesterol 51 mg/dl Cholesterol/HDL Ratio 4.3 LDL Cholesterol, Calculated 143 mg/dl Medical Emergencies . Who to Call and When: Medical Emergencies: Call 911 immediately if you experience any of the following warning signs and symptoms of Stroke: * Sudden numbness or weakness of the face, arm or leg, especially on one side of the body * Sudden confusion, trouble speaking or understanding * Sudden trouble seeing in one or both eyes * Sudden trouble walking, dizziness, loss of balance or coordination * Sudden severe headache with no cause Do not delay calling 911 if you experience any warning signs or symptoms of a stroke. Delay in seeking medical attention may affect what treatments can be given to you. . Non-Emergent Contact Non-Emergency issues call your: Primary Care Provider . . "Provider Documentation" section prepared by Zeynep Zepeda. . Stroke Core Measures Reason no t-PA for Stroke: Treatment not indicated Reason no antithrom by day 2: Treatment provided - N/A Reason no antithrom at D/C: Treatment provided - N/A Reason no statin at D/C: Treatment provided - N/A Reason no anticoag w/a fib: Treatment not indicated VTE Core Measure Inpt VTE Proph given/why not?: Enoxaparin (Lovenox)SQ
--- NOTE | 2017-09-03 17:34 | PROGRESS NOTE ---
DATE: 09/03/2017 Nick just had a CTA, there is no significant intracranial disease and his echocardiogram shows no cardiogenic source of emboli, although [id number] shunt through PFO cannot be totally excluded. The imaging to date, in my opinion shows evidence for what is probably a subacute infarction deep in the left frontal lobe, which could nicely explain his right leg minor monoparesis and his history of right hemiparesis. Right now he is wanting to be discharged. I discussed the case with Zeynep Zepeda MD. I agree that we can send him home on aspirin and_ he needs to get with a primary care physician and needs to have his risk factors modified as per the usual algorithm following a stroke, but this is going to be entirely up to him. If we discharge him on lipid lowering agents and anatihypertensive agent, he probably will not comply , but he would more likely be compliant with aspirin. We would be happy to look him in Neurology in about 3-4 weeks. ASHLYN
[2017-09-04 07:09] LABS: HEMOGLOBIN A1C 5.2 % (4.5-5.6)
--- NOTE | 2017-09-04 07:57 | CONSULTATION REPORT ---
DATE OF CONSULTATION: 09/03/2017 REQUESTING PHYSICIAN: Dr. Zeynep Zepeda. Nick is a 56-year-old white right hand male from [place], [place], who last saw physician 5 years ago following an ankle fracture, I believe on the right. He really has not had any documented medical problems, though he admits on his bi-yearly [employer] license application that his blood pressure recordings have been at the upper end of normal to a little high but he has never taken any medications. He lives alone apparently. 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 He does use alcohol very heavily on the weekend, admitting to 20 cans of beer on Monday and Monday nights and had a significant alcohol level when he entered the hospital with a history of several days of right lower extremity clumsiness and some minor clumsiness of the right hand. He felt his gait was affected and some of his friends apparently pointed out, so he presented to the Emergency Room yesterday and went through an evaluation. Duplex of his carotids has not shown anything. CAT is said to show some patchy white matter lesions, but I am suspicious about a lesion in the deep portions of left anterior hemisphere being more of a subacute infarction. Otherwise, he has no cortical based infarctions or evidence of this type of issue. There is nothing in the posterior fossa. An MRI was attempted but he could not take the closed in sensation, refuses absolutely to try it again even with sedation. PAST MEDICAL HISTORY: Ill defined. He is not known to have any hypertension, diabetes, thyroidism, coronary disease, lung disease, etc., but has not been tested, and as noted above, his [facility] physicals have shown some marginal hypertension in the past. His immunizations are currently up to date, having received a flu shot, perhaps this year, although last recorded was 2012. There is no history of hospitalizations or drug-resistant organisms. He has no known drug allergies and takes no medications at home. Recent review of systems is as recorded and basically normal. He does not have any fever, sweats, chills, no recent influenza. No hospitalizations. No issues that he defines referable to head, eyes, ears, nose and throat, cardiovascular, pulmonary, gastrointestinal, genitourinary, musculoskeletal system. Neurologically, he has never had any issues, does not have headaches, visual disturbances, tinnitus, vertigo, neck or back pain, but does have several days of clumsiness of the right leg more than the right arm and he thinks the right arm is back to baseline now and the leg has improved. PHYSICAL EXAMINATION: VITAL SIGNS: His blood pressure is 165/90, pulse is about 92, respirations are 16. GENERAL: He is awake, alert, oriented in 3 spheres. No cranial deformities. HEENT: Examination is normal. No carotid bruits are heard. LUNGS: Clear. HEART: Has a regular rhythm with no murmurs. ABDOMEN: Soft and nontender. There is no hepatosplenomegaly. EXTREMITIES: Free of edema and have good peripheral pulses. NEUROLOGIC: Today, neurologically, he is awake, alert, oriented. He has normal eye movements, normal visual gallagher, normal pupils, normal gross visual acuity, but there may be a slight right upper motor neuron facial asymmetry and a minimal clumsiness with drift to the right hand with the arms extended. Right leg movements are a little clumsy but he could get up and stand and facilitate rapid repetitive motion, this was only slightly down. Reflexes are a little brisk in the right lower extremity, normal in the arms. The right toe sign is extensor, left toe sign is flexor. Strength testing is normal. There is no atrophy. No fasciculations. Sensory examination is quite intact to light touch, vibration, temperature, and there is no evidence of sensory neglect on bilaterally presented stimuli. At this point, I think this man has had a deep small vessel infarction, likely involving the left anterior hemisphere. Unfortunately, we cannot confirm this with MRI due to his refusal to test even with sedation. While his carotids are normal, we need to do an echo which is being scheduled. I would like to get a CTA of the intracranial vessels just to be sure we are not dealing with any intracranial stenosis or problem with the carotid siphon on the left. I am not sure he is going to stay around to have the testing done. His blood pressure has been running a little on the high side, but until we really define what is going on, I think we should allow him to have some mild permissive hypertension. I would continue the aspirin as he was not taking this before. He needs to have his other risk factors modified with appropriate cholesterol lowering drugs, antihypertensives, etc., but he also really needs to underwriting support specialist with a primary care physician in this area and have a lot of his general health issues addressed. I will be back to check in tomorrow, put the orders in for the CTA and combination repeat CT of the brain to see if this area of low density is going to more clearly evolve into a clearcut infarction, which I think it will. Otherwise, I have no recommendations other than those listed above. PRATIKD
[2017-09-04] MEDS ORDERED: AMLODIPINE BESYLATE 5 MG TAB PO SCH (09:00)
== END 2017-09-03 18:45 | disposition home or self-care (01) ==
LOC: C.EDB 20:16 → C.MED 22:49 → ENRESERV 22:58
PROVIDERS: ADMIT Internal Medicine; ATTEND Hospitalist
DX: I63.9 Cerebral infarction, unspecified (principal); F10.129 Alcohol abuse with intoxication, unspecified; I10 Essential (primary) hypertension; F17.200 Nicotine dependence, unspecified, uncomplicated; Z79.82 Long term (current) use of aspirin; Z79.899 Other long term (current) drug therapy; Z98.890 Other specified postprocedural states; Z82.3 Family history of stroke; Z83.3 Family history of diabetes mellitus